=== PATIENT | male | born 1965 | race Caucasian/White ===

== ENCOUNTER 2017-08-03 13:30 | Outpatient (RCR) | payer OTHER, SELFPAY | END 2017-08-03 13:31 | disposition home or self-care (01) | LOC: PT 13:30 | PROVIDERS: Visit Provider Internal Medicine | DX: S42.021A Displaced fracture of shaft of right clavicle, initial encounter for closed fracture (principal); S62.34 Nondisplaced fracture of base of other metacarpal bone | CPT/HCPCS: 97010; 97014; 97018; 97110; 97140; 97163; G0283 ==